=== PATIENT | male | born 1995 | race Hispanic/Latino ===

== ENCOUNTER 2016-11-15 14:18 | Emergency (ER) | payer MEDICAID, OTHER ==
[~2016-11-15] VITALS: Ht 177.8 cm; Wt 150.0 kg
[~2016-11-15 14:18] MED LIST: IBUP-1827 PO; PRED50TA PO; VALA100026 PO
[2016-11-15 14:19] VITALS: BP 131/80; PULSE 112; RESP 20; O2SAT 98
--- NOTE | 2016-11-15 14:58 | ED.REPORT ---
HPI-Extremity Problem Upper Date of Service Nov 15, 2016 ED Provider: Yves Moody MD A 21 year old male with a history of recurrent shoulder dislocation presents to the ED complaining of right shoulder pain that began just prior to arrival. 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 Patient reports that his current pain feels similar to his previous dislocations. His last dislocation was 6 months ago. He denies any previous surgeries. Patient denies any current neck pain or any other current pain. Nursing Notes Stated Complaint: RT SHOULDER PAIN Chief Complaint: Extremity Trauma Nursing Notes Reviewed: Yes Allergies: Coded Allergies: No Known Allergies (Verified Allergy, Unknown, 03/16/16) Scheduled Prednisone (PredniSONE) 50 Mg Tablet 60 MG PO DAILY Valacyclovir (Valacyclovir) 1,000 Mg Tablet 1,000 MG PO TID Scheduled PRN Ibuprofen (Ibuprofen) 600 Mg Tablet 600 MG PO QID PRN PRN For Pain General Time Seen by MD: 14:57 Chief Complaint Shoulder injury right Hx Obtained From: Patient Arrived By: Walk-in Onset Occurred: Just prior to arrival Symptom Duration: Since onset Caused by: Accidental Location: : Shoulder right Quality: Painful Severity: Current: Moderate Severity: Maximum: Moderate Associated with: Denies: Neck pain Pertinent Negative: Pt denies other symptoms Recent Healthcare: Recent doctor visit Past Medical History Past Medical History 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 Cardiovascular: Denies: Chest pain GI: Denies: Abdominal pain, Nausea, Vomiting Physical Exam Initial Vital Signs Vital Signs (First) Date Time Temp Pulse Resp B/P Pulse Ox O2 Delivery O2 Flow Rate FiO2 11/15/16 14:19 36.4 112 20 131/80 98 Room Air Initial VS: Reviewed Head / Eyes: Atraumatic, Normocephalic, PERRL Skin: Warm, Dry, No cyanosis Neurologic: Alert, Oriented, Nonfocal Psychiatric: Mood/affect normal, Behavior normal, Normal thought content General/Constitutional: Awake, Alert Neck: Atraumatic, Supple Respiratory / Chest: Atraumatic, Breath sounds NL, Breath sounds = bilat Cardiovascular: Heart rate NL, Regular rhythm, Heart sounds NL Upper Extremity / MS: Atraumatic, Neurologic intact, Vascular intact Right Shoulder: Positive: Deformity c/w ant disloc (Anterior fullness ), ROM reduced, Tenderness present... ENT: Atraumatic, Airway patent Lower Extremity / Pelvis / MS: Atraumatic, Inspection NL, Neurologic intact, Vascular intact Interpretation & Diagnostics X-Ray Interpretation Xray Interpretation: IMPRESSION: Right shoulder anterior dislocation. Dictated by: Rupa London MD, PhD on 11/15/2016 at 15:37 X-Ray Ordered: Shoulder right Interpretation / Wet Read by: Interpret - Radiologist Procedures Proced Mod Sedation/Analgesia Time: 15:52 Procedure Performed by: ED physician Sedation Time: 16 - 30 min Consent / Setup: Consent from patient, Time-out performed, Hand hygiene observed, Stand sterile technique, Patient sitting up Indication: Shoulder reduction Preparation: monitor tech applied, Pulse oximeter applied, Constant attendance, IV access established, Eval last meal time, Supplemental oxygen, Procedure explained, Suction available, End tidal CO2 mon applied VS Prior to Procedure: All vital signs normal Sedation: Sedation: Propofol ASA Classification: 1 normal healthy patient Response During Procedure: Handled secretions adeq, Maintained airway well, Oxygenation stable, Sedation appropriate, Vital signs stable Complications During/After: None Post-Procedure: Vital signs normal Attestation: I performed procedure Reduction Dislocated Shoulder Time: 15:52 Procedure Performed by: ED physician Consent / Setup: Consent from patient, Time-out performed, Oxygen administered , Pulse oximeter applied, monitor tech applied, Hand hygiene observed, Stand sterile technique Procedural Sedation/Analgesia: Sedation: Propofol Which Shoulder and Technique: Right shoulder Neurovascular: Intact pre-procedure, Intact post-procedure Post-Procedure / Complications: Reduced per examination, Procedure successful, X-ray disloc reduced, Condition improved, Tolerated procedure well, Patient stable Splint Application - Fx Mgt Time: 16:09 Procedure Performed by: Rn Home Health Type of Immobilization: Sling Definitive Fracture Care: Follow up > 4 days Post-Procedure / Complications: Cap refill normal, Post splint vascular nl, Post splint neuro nl, Condition improved, Tolerated procedure well, Patient stable Splint Post-Application Eval Extremity Condition: Cap refill < 2 sec, Distal sensation intact, Distal motor Intact Re-Eval/Medical Decision Re-Evaluation/Progress #1: Time of Eval: 15:08 Patient Status: Condition improved Re-Evaluation/Progress Note: Patient is informed of plan to sedate and reduce disolocation. Re-Evaluation/Progress #2: Time of Eval: 15:51 Patient Status: Condition improved Re-Evaluation/Progress Note: Shoulder is reduced per exam. He is informed of his X-ray results and diagnosis. All questions are addressed. He understands and agrees with the treatment plan. Counseled Regarding: Diagnosis, Need for follow-up, When/why to return to ED Discharge & Departure Impression: Primary Impression: Recurrent dislocation, right shoulder Disposition: Home Discharge Condition All VS Reviewed: Yes Condition: Stable Patient Instructions: Shoulder Dislocation (ED) Additional Instructions: Thank you for trusting us with your care this afternoon. Your X-ray showed that your right shoulder was dislocated and we were able to successfully relocate it. Please do not drink or drive as you have received a sedating medication. Take 800 mg ibuprofen every 8 hours for pain. Take hydrocodone/APAP 1 or 2 as needed for more severe pain for the next one or 2 days. See referral to Orthopedic and schedule a follow up appointment in the coming days. Please return to the emergency department for any new or worsening symptoms including worsening pain or numbness in the shoulder. Do not bring your arm away from her body as these positions will make dislocation more likely. Referrals: [facility] (PCP) Pedro Suresh DO 1 Week [facility] Scribe Attestation Portions of this note were transcribed by Gabriela Padilla. I, Dr. Moody personally performed the history, physical exam and medical decision-making; I reviewed and confirmed the accuracy of the information in the transcribed note. Signed by: Ti Berry, 11/15/16 1800. Yves Moody MD Nov 15, 2016 14:58 GABRIELA PADILLA Nov 15, 2016 15:09
[2016-11-15] MEDS ORDERED: Propofol 10 mg/mL 20 mL Inj IVPUSH ONE (15:10)
[2016-11-15 15:30] VITALS: BP 152/87; PULSE 107; RESP 15; O2SAT 96
--- NOTE | 2016-11-15 15:39 | DRSVH ---
PROCEDURE: X-RAY RIGHT SHOULDER, MINIMUM TWO VIEWS ([id number]) INDICATIONS: subluxation TECHNIQUE: 2 views of the shoulder were acquired. COMPARISON: None. FINDINGS: Bones: The right humerus is anteriorly dislocated. Soft tissues: No suspicious soft tissue calcifications. IMPRESSION: Right shoulder anterior dislocation. Dictated by: Rupa London MD, PhD on 11/15/2016 at 15:37 Approved by: Rupa London MD, PhD on 11/15/2016 at 15:37
[2016-11-15] MEDS ORDERED: HYDROmorphone 1 mg/mL Inj IVPUSH ONE (15:55)
[2016-11-15] MEDS ORDERED: HYDR-4003 PO (16:16)
[2016-11-15 16:54] VITALS: PULSE 99; RESP 19; O2SAT 96
--- NOTE | 2016-11-15 17:02 | DRSVH ---
PROCEDURE: X-RAY RIGHT SHOULDER, MINIMUM TWO VIEWS ([id number]) INDICATIONS: post reduction TECHNIQUE: 2 views of the shoulder were acquired. COMPARISON: None. FINDINGS: Bones: Patient is status post reduction of right shoulder anterior dislocation. No suspicious bony lesions. Visualized ribs appear intact. Soft tissues: No suspicious soft tissue calcifications. IMPRESSION: Status post reduction of right shoulder anterior dislocation. Dictated by: Rupa London MD, PhD on 11/15/2016 at 17:00 Approved by: Rupa London MD, PhD on 11/15/2016 at 17:00
== END 2016-11-15 16:53 | disposition home or self-care (01) ==
LOC: SED 14:18
DX: M24.411 Recurrent dislocation, right shoulder (principal); X50.9XXA Other and unspecified overexertion or strenuous movements or postures, initial encounter; Y93.89 Activity, other specified; Y92.89 Other specified places as the place of occurrence of the external cause; Y99.8 Other external cause status; G51.0 Bell's palsy
CPT/HCPCS: 23650; 73030; 94770; 94799; 96374; 99284; J1885

== ENCOUNTER 2017-03-09 23:38 | Emergency (ER) | payer OTHER ==
[~2017-03-09] VITALS: Ht 177.8 cm; Wt 170.4 kg
[~2017-03-09 23:38] MED LIST changes: +HYDR-4003 PO
[2017-03-09 23:42] VITALS: BP 192/125; PULSE 123; RESP 18; O2SAT 96
--- NOTE | 2017-03-09 23:45 | ED.REPORT ---
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 He was putting his bag into the back of his car when he felt his arm pop out of place. The patient now complains of right shoulder pain secondary to the dislocation. The patient usually experienced dislocations every two to three years but has been having them every six to seven months lately. Nursing Notes Stated Complaint: RIGHT ARM PAIN Chief Complaint: Extremity Trauma Nursing Notes Reviewed: Yes Allergies: Coded Allergies: No Known Allergies (Verified Allergy, Unknown, 03/09/17) Scheduled Prednisone (PredniSONE) 50 Mg Tablet 60 MG PO DAILY Valacyclovir (Valacyclovir) 1,000 Mg Tablet 1,000 MG PO TID Scheduled PRN Hydrocodone-Acetaminophen 5-325 mg (Hydrocodone-Acetaminophen 5-325 mg) 1 Each Tablet 1-2 TABLET PO Q4H PRN PRN For Pain Ibuprofen (Ibuprofen) 600 Mg Tablet 600 MG PO QID PRN PRN For Pain General Time Seen by MD: 23:42 Chief Complaint Shoulder injury right (Dislocation) Hx Obtained From: Patient Arrived By: Walk-in Onset Occurred: 31 - 45 minutes ago Symptom Duration: 16 - 30 minutes Caused by: Accidental Location: : Shoulder right Quality: Painful Severity: Current: Moderate Severity: Maximum: Moderate Recent Healthcare: Recent doctor visit Similar Sx Previous: Yes Past Medical History Past Medical History Recurring right shoulder dislocation Prasad's Palsy Denies: Congestive heart failure, Diabetes mellitus, Hypertension Past Surgical History None reported Smoking History Never Smoker Social History Alcohol Use: Denies alcohol use Drug Use: Denies drug use Other Social History: Good social support, Local resident Ambulatory Status Independent Review of Systems Musculoskeletal: Reports: Joint pain (right shoulder) Skin: Denies Rash Complete sys rev & neg: except as marked. Respiratory: Denies: Non-productive cough, Shortness of breath Cardiovascular: Denies: Chest pain GI: Denies: Abdominal pain Physical Exam Initial Vital Signs Vital Signs (First) Date Time Temp Pulse Resp B/P Pulse Ox O2 Delivery O2 Flow Rate FiO2 03/09/17 23:42 36.1 123 18 192/125 96 Room Air Initial VS: Reviewed, Vital signs abnormal Skin: Warm, Dry, No cyanosis Neurologic: Alert, Oriented, Nonfocal Psychiatric: Mood/affect normal, Behavior normal General/Constitutional: Awake, Alert Appearance / Presentation: Positive: Obese, morbidly Neck: Atraumatic, Supple, Full range of motion Respiratory / Chest: Atraumatic, Breath sounds NL, Breath sounds = bilat, No respiratory distress Cardiovascular: Heart rate NL, Regular rhythm, Heart sounds NL Upper Extremity / MS: Neurologic intact, Vascular intact Right shoulder tenderness and palpable step-off Head / Eyes: Atraumatic, Normocephalic, PERRL ENT: Atraumatic, Airway patent, Mucous membranes moist, Pharynx NL Mallampati Class III Abdomen: Atraumatic, Soft Back: Atraumatic, Full range of motion Lower Extremity / Pelvis / MS: Full range of motion, Neurologic intact, Vascular intact Interpretation & Diagnostics X-Ray Interpretation Xray Interpretation: Right shoulder dislocation. No fracture. X-Ray Ordered: Shoulder right Interpretation / Wet Read by: Wet read ED physician Interpretation: Dislocation Procedures Reduction Dislocated Shoulder Time: 00:55 Procedure Performed by: ED physician Consent / Setup: Informed consent provided, Consent from patient, Time-out performed, Oxygen administered, Pulse oximeter applied, awake overnight monitor applied , Hand hygiene observed, Stand sterile technique Procedural Sedation/Analgesia: Sedation: Etomidate (20 mg x2), Analgesia: Dilaudid Which Shoulder and Technique: Right shoulder, [id number] Neurovascular: Intact pre-procedure, Intact post-procedure Post-Procedure / Complications: Reduced per examination, Procedure successful, X-ray disloc reduced, Shoulder immobilized, Condition improved, Tolerated procedure well, Patient stable Re-Eval/Medical Decision Med Decision/Clinical Course 21-year-old obese male with a history of recurrent shoulder dislocations. Tonight he reached out to push against something and his shoulder dislocated. There was no fall or other trauma. X-ray showed dislocation with no fracture. He was given Dilaudid for pain and etomidate for sedation. His shoulder was easily relocated under etomidate sedation. Post-reduction x-ray showed good position and no fracture. Patient was observed for an appropriate time and then discharged home. He was fitted with a shoulder immobilizer. He will follow up with orthopedics to talk about surgery to reduce the risk of recurrence. Source of Hx: Old records Re-Evaluation/Progress #1: Time of Eval: 00:32 Re-Evaluation/Progress Note: Pt rechecked. He was informed that there was no break in his right shoulder. He was advised to talk about shoulder surgery with an orthopedist. All questions were answered. Re-Evaluation/Progress #2: Time of Eval: 00:55 Patient Status: Condition improved Re-Evaluation/Progress Note: Patient rechecked and right shoulder relocation was performed with conscious sedation. Informed pt of plan for discharge. Pt understands and agrees with plan for treatment. F/U instructions and RTER warnings given. All questions addressed. Counseled Regarding: Diagnosis, Lab results, Need for follow-up, When/why to return to ED Discharge & Departure Impression: Primary Impression: Recurrent dislocation, right shoulder Disposition: Home Discharge Condition All VS Reviewed: Yes Condition: Stable Patient Instructions: Procedural Sedation (ED), Shoulder Dislocation (ED), Shoulder Dislocation Exercises (GEN) Additional Instructions: The shoulder was easily relocated. Wear the immobilizer and do not raise your arm over your head. Talk to the orthopedist about possible surgery or exercises to strengthen this and prevent recurrence. Referrals: [facility] (PCP) Alf Camacho MD Scribe Attestation Portions of this note were transcribed by Kirill Mcneil and Diandra Mercedes. I, Dr. Turner personally performed the history, physical exam and medical decision-making; I reviewed and confirmed the accuracy of the information in the transcribed note. Signed by: Kirill Mcneil and Diandra Mercedes, Ilyaibe, and [id number]. copies to: [facility]; Alf Camacho MD, Howard L MD March 09, 2017 23:45 Diandra Beckford March 09, 2017 23:47 KIRILL MCNEIL March 10, 2017 01:30 KIRILL MCNEIL March 10, 2017 01:30
[2017-03-09] MEDS ORDERED: HYDROmorphone 1 mg/mL Inj IVPUSH PRN (23:55)
[2017-03-10] MEDS ORDERED: Etomidate 2 mg/mL 20 mL Inj IV ONE (00:40)
[2017-03-10 02:21] VITALS: BP 129/65; PULSE 102; RESP 20; O2SAT 97
--- NOTE | 2017-03-10 08:38 | DRSVH ---
PROCEDURE: X-RAY RIGHT SHOULDER, ONE VIEW ([id number]) INDICATIONS: s/p relocation TECHNIQUE: 1 views of the shoulder were acquired. COMPARISON: [facility], CR, XR SHOULDER MIN 2VW RT, 11/15/2016, 15:51. [facility], [facility], [facility] MIN 2VW RT, 11/15/2016, 14:28. [facility], CR, XR SHOULDER 1VW RT, 08/21/2016, 6:43. [facility], CR, XR SHOULDER MIN 2VW RT, 03/09/2017, 23:54. [facility], CR, XR SHOULDER 1VW RT, 08/21/2016, 7:07. FINDINGS: Bones: Single AP view of the right shoulder demonstrates near-anatomic alignment status post closed r eduction of right shoulder dislocation. No definite associated fracture seen. Soft tissues: No suspicious soft tissue calcifications. IMPRESSION: Near-anatomic alignment status post closed reduction of right shoulder dislocation. Dictated by: Santiago Woodall RR Interpreted: Rupa London MD on 03/10/2017 at 8:36 Transcribed by: DULCE on 03/10/2017 at 8:37 Approved by: Rupa London MD, PhD on 03/10/2017 at 11:16
--- NOTE | 2017-03-10 08:42 | DRSVH ---
PROCEDURE: X-RAY RIGHT SHOULDER, MINIMUM TWO VIEWS ([id number]) INDICATIONS: dislocation TECHNIQUE: 2 views of the shoulder were acquired. COMPARISON: [facility], CR, XR SHOULDER MIN 2VW RT, 11/15/2016, 14:28. [facility], CR, XR SHOULDER MIN 2VW RT, 11/15/2016, 15:51. FINDINGS: Bones: Anterior medial dislocation of the right humeral head and no definite associated fracture seen . Soft tissues: No suspicious soft tissue calcifications. IMPRESSION: Right shoulder anterior dislocation. Dictated by: Santiago BETANCOURT Interpreted: Rupa London MD on 03/10/2017 at 8:40 Transcribed by: DULCE on 03/10/2017 at 8:41 Approved by: Rupa London MD, PhD on 03/10/2017 at 11:16
== END 2017-03-10 02:18 | disposition home or self-care (01) ==
LOC: SED 23:38
DX: M24.411 Recurrent dislocation, right shoulder (principal); X50.9XXA Other and unspecified overexertion or strenuous movements or postures, initial encounter; Y93.89 Activity, other specified; Y92.810 Car as the place of occurrence of the external cause; Y99.8 Other external cause status; G51.0 Bell's palsy
CPT/HCPCS: 23650; 73020; 73030; 94799; 96374; 99152; 99285; J1170